=== PATIENT | male | born 1965 | race Caucasian/White ===

== ENCOUNTER 2021-06-13 08:43 | Emergency (ER) | payer OTHER, SELFPAY ==
[2021-06-13] MEDS ORDERED: Bacitracin 1 PK ONE (09:56)
== END 2021-06-13 09:45 | disposition home or self-care (01) ==
LOC: ERS 08:43
DX: S68.512 Complete traumatic transphalangeal amputation of left thumb (principal); Z87.891 Personal history of nicotine dependence